=== PATIENT | male | born 1965 | race Caucasian/White ===

== ENCOUNTER 2017-10-22 10:03 | Inpatient (IN) | payer MEDICARE, MEDICAID ==
[2017-10-21 14:56] LABS: BASOPHILS # (AUTO) 0.1 X10'3 (0-0.2); BASOPHILS % (AUTO) 0.7 % (0-1); EOSINOPHILS # (AUTO) 0.8 X10'3 (0-0.9); EOSINOPHILS % (AUTO) 8.5 % (0-6); LYMPHOCYTES # (AUTO) 2.2 X10'3 (1.1-4.8); LYMPHOCYTES % (AUTO) 24.8 % (21-51); MEAN CORPUSCULAR HEMOGLOBIN 32.2 PG (27.0-31.0); MEAN CORPUSCULAR HGB CONC 34.2 % (33.0-36.5); MEAN PLATELET VOLUME 7.7 FL (7.4-10.4); MONOCYTES # (AUTO) 0.6 X10'3 (0-0.9); MONOCYTES % (AUTO) 6.2 % (2-12); NEUTROPHILS # (AUTO) 5.4 X10'3 (1.8-7.7); NEUTROPHILS % (AUTO) 59.8 % (42-75); PRE OP HEMATOCRIT 48.1 % (42.0-52.0); PRE OP HEMOGLOBIN 16.5 g/dL (14.0-17.9); PRE OP PLATELET COUNT 318 X10'3 (140-440); RED BLOOD COUNT 5.11 X10'6 (4.70-6.10); RED CELL DISTRIBUTION WIDTH 13.3 % (11.5-14.5)
[2017-10-21 15:18] LABS: ALBUMIN 3.8 G/DL (3.4-5.0); ALBUMIN/GLOBULIN RATIO 1.1 (1.1-1.5); ALKALINE PHOSPHATASE 120 IU/L (46-116); BLOOD UREA NITROGEN 14 MG/DL (7-18); CALCIUM 8.9 MG/DL (8.5-10.1); CHLORIDE 104 MMOL/L (99-107); CREATININE 1.08 MG/DL (0.60-1.10); PRE OP ALT 38 U/L (30-65); PRE OP ANION GAP 5 (8-16); PRE OP AST 20 U/L (10-37); PRE OP BILIRUB, TOTAL 0.2 MG/DL (0.0-1.0); PRE OP GLUCOSE 115 MG/DL (70-104); PRE OP SODIUM 140 MMOL/L (135-145); TOTAL CARBON DIOXIDE 31.2 MMOL/L (24-32); TOTAL PROTEIN 7.4 G/DL (6.4-8.2); eGFR 71 ML/MIN
[2017-10-22] VITALS (15 sets, daily range): BP systolic 103–138; BP diastolic 54–88
[~2017-10-22] VITALS: Ht 182.9 cm; Wt 87.2 kg
[~2017-10-22 10:03] MED LIST: ATOR10TA70 PO; DULO60CA64 PO; MSC100T PO; OXYC-511 PO; TRAZ-146 PO; cefazolin/dext.iso 2gm/50ml 50 ML IV ONE; famotidine 20mg tablet PO ONE; ringers solution, lacted 1,000 ML IV SCH
[2017-10-22] MEDS ORDERED: LIDOcaine 1% (10mg/ml) 2ml vial ONE (10:56)
[2017-10-22] MEDS ORDERED: vancomycin/NS 1 GM ADD-VANTAGE 250 ML IV ONE (11:51)
[2017-10-22] MEDS ORDERED: TRANEXAMIC ACID IV ONE ×5 (13:45→20:50)
[2017-10-22] MEDS ORDERED: NORMAL SALINE IV ONE ×5 (13:45→20:50)
[2017-10-22] MEDS ORDERED: vancomycin 1,000mg inj ONE ×5 (14:10→17:13)
[2017-10-22] MEDS ORDERED: ketorolac trometh. 30mg/ml inj. ONE (14:10)
[2017-10-22] MEDS ORDERED: ROPIVAcaine 0.5% (5mg/ml) 30ml vial ONE ×2 (14:10→15:09)
[2017-10-22] MEDS ORDERED: sevoflurane 250ml liquid IH ONE (15:05)
[2017-10-22] MEDS ORDERED: fentaNYL/PF 50MCG/1 ML 2ML syringe ONE (15:08)
[2017-10-22] MEDS ORDERED: midazolam 2 mg/2 ml injection ONE (15:09)
[2017-10-22] MEDS ORDERED: LIDOcaine 1%/PF (10mg/ml) 5ml vial ONE (15:12)
[2017-10-22] MEDS ORDERED: propofol inj 20 ML IV ONE ×2 (15:12→18:02)
[2017-10-22] MEDS ORDERED: ePHEDrine 50MG/ML INJ. ONE (15:48)
[2017-10-22] MEDS ORDERED: ringers solution, lacted 1,000 ML IV SCH (16:13)
[2017-10-22] MEDS ORDERED: ondansetron/PF 4mg/2ml inj IV PRN ×2 (16:15→17:50)
[2017-10-22] MEDS ORDERED: proCHLORperazine 10 MG/2 ml inj IV PRN (16:15)
[2017-10-22] MEDS ORDERED: meperidine/PF 25mg/ml syringe IV PRN ×3 (16:15)
[2017-10-22] MEDS ORDERED: morphine sulfate 8 MG/ML SYRINGE IV PRN ×2 (16:15)
[2017-10-22 17:44] LABS: APPEARANCE,SYNOVIAL FLUID TURBID; COLOR,SYNOVIAL FLUID YELLOW; SYN WBC 4950 /CU MM (0-200)
[2017-10-22 17:45] LABS: LYMPHOCYTES,SYNOVIAL FLUID 24 % (0-75); MONOCYTES,SYNOVIAL FLUID 4 % (0-0); NEUTROPHILS,SYNOVIAL FLUID 72 % (0-25); SYN RBC 4000 /CU MM (0)
[2017-10-22] MEDS ORDERED: bisacodyl 10mg suppository rectal RC PRN (17:50)
[2017-10-22] MEDS ORDERED: oxyCODONE/APAP 10/325mg tablet PO PRN (17:50)
[2017-10-22] MEDS ORDERED: diphenhydrAMINE 25mg capsule PO PRN ×2 (17:50)
[2017-10-22] MEDS ORDERED: magnesium hydroxide 30ml (MOM) UD suspension PO PRN (17:50)
[2017-10-22] MEDS ORDERED: acetaminophen 325mg tablet PO PRN (17:50)
[2017-10-22] MEDS ORDERED: oxyCODONE IR 5mg (immed. release) tablet PO PRN (17:50)
[2017-10-22] MEDS: sennosides 8.6mg tablet PO SCH (21:07)
[2017-10-22] MEDS: ketorolac tromethamine 15mg/ml inj. IV SCH (21:07)
[2017-10-22] MEDS: morphine ER 100mg tablet PO SCH (21:07)
[2017-10-22] MEDS: potassium cl 20mEq in 1/2 NS 1,000 ML IV SCH (21:08)
[2017-10-22] MEDS: celeCOXIB 100mg capsule PO SCH (21:08)
[2017-10-22] MEDS: acetaminophen 325mg tablet PO SCH (21:11)
[2017-10-22] MEDS: gabapentin 300mg capsule PO SCH (22:27)
[2017-10-22] MEDS: traZODone 50mg tablet PO SCH (22:28)
[2017-10-23] MEDS: CEFAZOLIN SODIUM/NORMAL SALINE 100 ML IV SCH ×2 (00:39→07:52)
[2017-10-23] MEDS: vancomycin/NS 1 GM ADD-VANTAGE 250 ML IV SCH ×3 (01:18→20:23)
[2017-10-23] MEDS: potassium cl 20mEq in 1/2 NS 1,000 ML IV SCH ×3 (01:49→17:49)
[2017-10-23] MEDS: acetaminophen 325mg tablet PO SCH ×4 (02:51→20:24)
[2017-10-23] MEDS: ketorolac tromethamine 15mg/ml inj. IV SCH ×4 (02:53→20:25)
[2017-10-23 03:28] VITALS: BP 113/63
[2017-10-23] MEDS: oxyCODONE IR 5mg (immed. release) tablet PO PRN ×3 (05:17→17:48)
[2017-10-23 06:08] LABS: BASOPHILS % (AUTO) 0 % (0-1); EOSINOPHILS # (AUTO) 0.1 X10'3 (0-0.9); EOSINOPHILS % (AUTO) 0.9 % (0-6); HEMATOCRIT 34.7 % (42.0-52.0); HEMOGLOBIN 11.8 g/dl (14.0-17.9); LYMPHOCYTES # (AUTO) 0.8 X10'3 (1.1-4.8); LYMPHOCYTES % (AUTO) 5.5 % (21-51); MEAN CORPUSCULAR HEMOGLOBIN 31.9 PG (27.0-31.0); MEAN CORPUSCULAR HGB CONC 33.9 % (33.0-36.5); MEAN CORPUSCULAR VOLUME 94.1 FL (78-98); MEAN PLATELET VOLUME 7.7 FL (7.4-10.4); MONOCYTES # (AUTO) 0.5 X10'3 (0-0.9); MONOCYTES % (AUTO) 2.9 % (2-12); NEUTROPHILS % (AUTO) 90.7 % (42-75); PLATELET COUNT 241 X10'3 (140-440); RED BLOOD COUNT 3.69 X10'6 (4.70-6.10); RED CELL DISTRIBUTION WIDTH 13.3 % (11.5-14.5); WHITE BLOOD COUNT 15.5 X10'3 (4.5-11.0)
[2017-10-23 06:31] LABS: ANION GAP 9 (8-16); CHLORIDE 104 MMOL/L (99-107); POTASSIUM 4.8 MMOL/L (3.5-5.1); SODIUM 137 MMOL/L (135-145); TOTAL CARBON DIOXIDE 23.8 MMOL/L (24-32)
[2017-10-23] MEDS: celeCOXIB 100mg capsule PO SCH ×2 (07:52→19:02)
[2017-10-23] MEDS: duloxetine 30mg CAPSULE.DR PO SCH (07:52)
[2017-10-23] MEDS: atorvastatin 10mg tablet PO SCH (07:52)
[2017-10-23] MEDS: morphine ER 100mg tablet PO SCH (07:53)
[2017-10-23] MEDS: gabapentin 300mg capsule PO SCH ×3 (07:53→20:24)
[2017-10-23] MEDS: aspirin 325mg tablet PO SCH (07:53)
[2017-10-23 10:00] VITALS: BP 111/61
[2017-10-23] MEDS ORDERED: morphine 5 MG/ML injection IV PRN (11:25)
[2017-10-23] MEDS: morphine sulfate 8 MG/ML SYRINGE IV PRN (11:56)
[2017-10-23 15:00] VITALS: BP 110/52
[2017-10-23] MEDS: lactobacillus rhamnosus 10,000 MMU CELLS/CAPSULE PO SCH (17:12)
[2017-10-23 18:00] VITALS: BP 111/44
[2017-10-23] MEDS: sennosides 8.6mg tablet PO SCH (20:24)
[2017-10-23] MEDS: traZODone 50mg tablet PO SCH (20:24)
[2017-10-23 22:00] VITALS: BP 106/55
[2017-10-24] MEDS: potassium cl 20mEq in 1/2 NS 1,000 ML IV SCH ×2 (00:08→09:49)
[2017-10-24] MEDS: oxyCODONE IR 5mg (immed. release) tablet PO PRN ×3 (02:52→11:46)
[2017-10-24] MEDS: ketorolac tromethamine 15mg/ml inj. IV SCH (02:53)
[2017-10-24] MEDS: acetaminophen 325mg tablet PO SCH ×2 (02:53→07:10)
[2017-10-24] MEDS: morphine sulfate 8 MG/ML SYRINGE IV PRN ×2 (04:58→09:49)
[2017-10-24 05:08] LABS: BASOPHILS # (AUTO) 0.1 X10'3 (0-0.2); BASOPHILS % (AUTO) 0.4 % (0-1); EOSINOPHILS # (AUTO) 0.4 X10'3 (0-0.9); EOSINOPHILS % (AUTO) 2.9 % (0-6); HEMATOCRIT 33.7 % (42.0-52.0); HEMOGLOBIN 11.3 g/dl (14.0-17.9); LYMPHOCYTES # (AUTO) 2.3 X10'3 (1.1-4.8); LYMPHOCYTES % (AUTO) 17.1 % (21-51); MEAN CORPUSCULAR HEMOGLOBIN 31.5 PG (27.0-31.0); MEAN CORPUSCULAR HGB CONC 33.4 % (33.0-36.5); MEAN CORPUSCULAR VOLUME 94.5 FL (78-98); MEAN PLATELET VOLUME 7.9 FL (7.4-10.4); MONOCYTES # (AUTO) 0.8 X10'3 (0-0.9); MONOCYTES % (AUTO) 5.8 % (2-12); NEUTROPHILS # (AUTO) 10.1 X10'3 (1.8-7.7); NEUTROPHILS % (AUTO) 73.8 % (42-75); PLATELET COUNT 215 X10'3 (140-440); RED BLOOD COUNT 3.57 X10'6 (4.70-6.10); WHITE BLOOD COUNT 13.6 X10'3 (4.5-11.0)
[2017-10-24 05:42] LABS: ALBUMIN 2.7 G/DL (3.4-5.0); ANION GAP 5 (8-16); BLOOD UREA NITROGEN 17 MG/DL (7-18); BUN/CREATININE RATIO 14.9 (5.4-32.0); CHLORIDE 109 MMOL/L (99-107); CREATININE 1.14 MG/DL (0.60-1.10); GLUCOSE 99 MG/DL (70-104); POTASSIUM 4.7 MMOL/L (3.5-5.1); SODIUM 141 MMOL/L (135-145); eGFR 67 ML/MIN
[2017-10-24 06:00] VITALS: BP 108/68
[2017-10-24] MEDS: vancomycin/NS 1 GM ADD-VANTAGE 250 ML IV SCH (07:09)
[2017-10-24] MEDS: celeCOXIB 100mg capsule PO SCH (07:09)
[2017-10-24] MEDS: atorvastatin 10mg tablet PO SCH (07:10)
[2017-10-24] MEDS: lactobacillus rhamnosus 10,000 MMU CELLS/CAPSULE PO SCH (07:10)
[2017-10-24] MEDS: duloxetine 30mg CAPSULE.DR PO SCH (07:10)
[2017-10-24] MEDS: gabapentin 300mg capsule PO SCH (07:11)
[2017-10-24] MEDS: aspirin 325mg tablet PO SCH (07:11)
[2017-10-24] MEDS ORDERED: morphine ER 100mg tablet PO SCH (08:00)
[2017-10-25] MEDS ORDERED: VANCOMYCIN LEVEL IV NR (19:30)
== END 2017-10-24 11:45 | disposition home or self-care (01) | DRG 496 ==
LOC: PAS IN 10:03 → EDSTATUS 13:45 → ORTHO 4S 19:15
PROVIDERS: ADMIT Orthopaedic Surgery; ATTEND Orthopaedic Surgery
PROC: 0RPK0JZ Removal of Synthetic Substitute from Left Shoulder Joint, Open Approach (ICD-10-PCS; 2017-10-22)
PROC: 0RHK08Z Insertion of Spacer into Left Shoulder Joint, Open Approach (ICD-10-PCS; 2017-10-22)
PROC: 3E0T3BZ Introduction of Anesthetic Agent into Peripheral Nerves and Plexi, Percutaneous Approach (ICD-10-PCS; principal; 2017-10-22 15:05)
PROC: 02HV33Z Insertion of Infusion Device into Superior Vena Cava, Percutaneous Approach (ICD-10-PCS; 2017-10-23)
PROC: B548ZZA Ultrasonography of Superior Vena Cava, Guidance (ICD-10-PCS; 2017-10-23)
DX: T84.59XA Infection and inflammatory reaction due to other internal joint prosthesis, initial encounter (principal); D62 Acute posthemorrhagic anemia; Z96.612 Presence of left artificial shoulder joint; E78.5 Hyperlipidemia, unspecified; F32.9 Major depressive disorder, single episode, unspecified; G89.29 Other chronic pain; F41.9 Anxiety disorder, unspecified; M75.01 Adhesive capsulitis of right shoulder; M75.111 Incomplete rotator cuff tear or rupture of right shoulder, not specified as traumatic; F17.200 Nicotine dependence, unspecified, uncomplicated; Y79.2 Prosthetic and other implants, materials and accessory orthopedic devices associated with adverse incidents; Y92.89 Other specified places as the place of occurrence of the external cause; Z79.899 Other long term (current) drug therapy
CPT/HCPCS: 36415; 36569; 76937; 80048; 80051; 80053; 85025; 87070; 87075; 87102; 88305; 88331; 89051; 97116; 97161; 97530; A4565; A6255; A7000; C1713; J0690; J1885; J2001; J2250; J2270; J2704; J2795; J3010; J3370; J3490; J7120

== ENCOUNTER 2018-02-27 13:30 | Inpatient (IN) | payer MEDICARE, MEDICAID ==
[~2018-02-27] VITALS: Ht 182.9 cm; Wt 81.5 kg
[~2018-02-27 13:30] MED LIST changes: -TRAZ-146 PO; -cefazolin/dext.iso 2gm/50ml 50 ML IV ONE; -famotidine 20mg tablet PO ONE; -ringers solution, lacted 1,000 ML IV SCH
[2018-02-27] MEDS ORDERED: ACYC-202 PO (14:39)
[2018-02-27] MEDS ORDERED: SILD20TA PO (14:39)
[2018-02-27 14:53] LABS: BASOPHILS # (AUTO) 0.1 X10'3 (0-0.2); EOSINOPHILS # (AUTO) 0.8 X10'3 (0-0.9); EOSINOPHILS % (AUTO) 8.9 % (0-6); LYMPHOCYTES # (AUTO) 3.1 X10'3 (1.1-4.8); LYMPHOCYTES % (AUTO) 36.2 % (21-51); MEAN CORPUSCULAR HEMOGLOBIN 31.3 PG (27.0-31.0); MEAN CORPUSCULAR HGB CONC 35.1 % (33.0-36.5); MEAN CORPUSCULAR VOLUME 89.2 FL (78-98); MEAN PLATELET VOLUME 7.1 FL (7.4-10.4); MONOCYTES # (AUTO) 0.6 X10'3 (0-0.9); MONOCYTES % (AUTO) 7.1 % (2-12); NEUTROPHILS % (AUTO) 46.8 % (42-75); PRE OP HEMATOCRIT 42.2 % (42.0-52.0); PRE OP HEMOGLOBIN 14.8 g/dL (14.0-17.9); PRE OP PLATELET COUNT 347 X10'3 (140-440); RED BLOOD COUNT 4.74 X10'6 (4.70-6.10); RED CELL DISTRIBUTION WIDTH 15.6 % (11.5-14.5)
[2018-02-27 14:59] LABS: ALBUMIN 3.7 G/DL (3.4-5.0); ALBUMIN/GLOBULIN RATIO 1.1 (1.1-1.5); ALKALINE PHOSPHATASE 108 IU/L (46-116); BLOOD UREA NITROGEN 19 MG/DL (7-18); BUN/CREATININE RATIO 16.1 (5.4-32.0); CALCIUM 8.6 MG/DL (8.5-10.1); CHLORIDE 106 MMOL/L (99-107); CREATININE 1.18 MG/DL (0.60-1.10); PRE OP ALT 28 U/L (30-65); PRE OP ANION GAP 9 (8-16); PRE OP AST 24 U/L (10-37); PRE OP BILIRUB, TOTAL 0.4 MG/DL (0.0-1.0); PRE OP GLUCOSE 88 MG/DL (70-104); PRE OP SODIUM 141 MMOL/L (135-145); TOTAL CARBON DIOXIDE 26.2 MMOL/L (24-32); TOTAL PROTEIN 7.1 G/DL (6.4-8.2); eGFR 64 ML/MIN
[2018-02-27 15:00] LABS: PRE OP POTASSIUM 4.4 MMOL/L (3.4-5.1)
[2018-02-28] VITALS (15 sets, daily range): BP systolic 98–154; BP diastolic 61–91
[2018-02-28] MEDS ORDERED: ringers solution, lacted 1,000 ML IV SCH ×2 (05:00→16:26)
[2018-02-28] MEDS ORDERED: vancomycin inj 1,500 MG in normal saline 300ml IV soln IV ONE (05:30)
[2018-02-28] MEDS ORDERED: famotidine 20mg tablet PO ONE (05:30)
[2018-02-28] MEDS ORDERED: ceFAZolin inj. 2,000 MG in normal saline 100ml IV soln 100 ML IV ONE (05:30)
[2018-02-28] MEDS ORDERED: scopolamine 1.5mg patch.TD72 TD ONE (05:30)
[2018-02-28] MEDS ORDERED: LIDOcaine 1% (10mg/ml) 2ml vial ONE (10:08)
[2018-02-28] MEDS ORDERED: oxyCODONE/APAP 10/325mg tablet PO ONE (13:30)
[2018-02-28] MEDS ORDERED: ROPIVAcaine 0.5% (5mg/ml) 30ml vial ONE ×3 (14:09→16:45)
[2018-02-28] MEDS ORDERED: ketorolac trometh. 30mg/ml inj. ONE ×3 (14:10→17:51)
[2018-02-28] MEDS ORDERED: vancomycin 1,000mg inj ONE (14:10)
[2018-02-28] MEDS ORDERED: midazolam 2 mg/2 ml injection ONE (15:36)
[2018-02-28] MEDS ORDERED: fentaNYL /PF 50mcg/ml 5ml ampule ONE (15:37)
[2018-02-28] MEDS ORDERED: tranexamic acid inj. 820 MG in normal saline 100ml IV soln 100 ML IV ONE ×5 (15:40→21:05)
[2018-02-28] MEDS ORDERED: dexamethasone sod phosphate 4mg/ml inj. ONE (16:02)
[2018-02-28] MEDS ORDERED: LIDOcaine 2% (20mg/ml) 5ml vial ONE (16:04)
[2018-02-28] MEDS ORDERED: ondansetron/PF 4mg/2ml inj ONE (16:04)
[2018-02-28] MEDS ORDERED: propofol inj 20 ML IV ONE (16:04)
[2018-02-28] MEDS ORDERED: ePHEDrine 50MG/ML INJ. ONE (16:05)
[2018-02-28] MEDS ORDERED: albumin (Human) 5% 250ml 250 ML IV ONE (16:23)
[2018-02-28] MEDS ORDERED: hydrALAZINE 20mg/ml inj. IV PRN (16:30)
[2018-02-28] MEDS ORDERED: enalaprilat dihydrate 2.5mg/2ml vial IV PRN (16:30)
[2018-02-28] MEDS ORDERED: ondansetron/PF 4mg/2ml inj IV PRN ×2 (16:30→18:05)
[2018-02-28] MEDS ORDERED: morphine 4 MG/ML inj SYRINge IV PRN ×2 (16:30)
[2018-02-28] MEDS ORDERED: fentaNYL/PF 50MCG/1 ML 2ML syringe IV PRN ×2 (16:30)
[2018-02-28] MEDS ORDERED: morphine 10mg/ml inj. ONE ×3 (17:43→17:58)
[2018-02-28] MEDS ORDERED: sildenafil citrate 20mg tablet PO SCH (18:05)
[2018-02-28] MEDS ORDERED: morphine 10mg/ml inj. IV PRN ×2 (18:05)
[2018-02-28] MEDS ORDERED: diphenhydrAMINE 25mg capsule PO PRN ×2 (18:05)
[2018-02-28] MEDS ORDERED: oxyCODONE IR 5mg (immed. release) tablet PO PRN (18:05)
[2018-02-28] MEDS ORDERED: acetaminophen 325mg tablet PO PRN (18:05)
[2018-02-28] MEDS ORDERED: bisacodyl 10mg suppository rectal RC PRN (18:05)
[2018-02-28] MEDS ORDERED: magnesium hydroxide 30ml (MOM) UD suspension PO PRN (18:05)
[2018-02-28] MEDS: morphine ER 100mg tablet PO SCH (19:32)
[2018-02-28] MEDS: ketorolac tromethamine 15mg/ml inj. IV SCH (19:32)
[2018-02-28] MEDS: acetaminophen 325mg tablet PO SCH (19:33)
[2018-02-28] MEDS ORDERED: vancomycin/NS 1 GM ADD-VANTAGE 250 ML IV SCH (20:00)
[2018-02-28] MEDS ORDERED: sennosides 8.6mg tablet PO SCH (21:00)
[2018-02-28] MEDS: oxyCODONE IR 5mg (immed. release) tablet PO PRN (21:03)
[2018-02-28] MEDS: gabapentin 300mg capsule PO SCH (21:03)
[2018-03-01] MEDS: ceFAZolin 1GM/D5W- ADD-VANTAGE 50 ML IV SCH ×2 (00:57→08:48)
[2018-03-01] MEDS: potassium cl 20mEq in 1/2 NS 1,000 ML IV SCH ×3 (00:58→10:05)
[2018-03-01] MEDS: oxyCODONE IR 5mg (immed. release) tablet PO PRN ×3 (01:14→12:19)
[2018-03-01] MEDS: ketorolac tromethamine 15mg/ml inj. IV SCH ×2 (01:14→08:48)
[2018-03-01] MEDS: acetaminophen 325mg tablet PO SCH ×2 (01:15→08:49)
[2018-03-01 02:00] VITALS: BP 100/58
[2018-03-01 07:25] LABS: BASOPHILS % (AUTO) 0.1 % (0-1); EOSINOPHILS % (AUTO) 0 % (0-6); HEMATOCRIT 36.2 % (42.0-52.0); HEMOGLOBIN 12.2 g/dl (14.0-17.9); LYMPHOCYTES # (AUTO) 0.8 X10'3 (1.1-4.8); LYMPHOCYTES % (AUTO) 5.5 % (21-51); MEAN CORPUSCULAR HEMOGLOBIN 30.9 PG (27.0-31.0); MEAN CORPUSCULAR HGB CONC 33.6 % (33.0-36.5); MEAN PLATELET VOLUME 8.2 FL (7.4-10.4); MONOCYTES # (AUTO) 0.2 X10'3 (0-0.9); MONOCYTES % (AUTO) 1.6 % (2-12); NEUTROPHILS # (AUTO) 13.4 X10'3 (1.8-7.7); NEUTROPHILS % (AUTO) 92.8 % (42-75); PLATELET COUNT 304 X10'3 (140-440); RED BLOOD COUNT 3.94 X10'6 (4.70-6.10); RED CELL DISTRIBUTION WIDTH 14.9 % (11.5-14.5); WHITE BLOOD COUNT 14.5 X10'3 (4.5-11.0)
[2018-03-01] MEDS ORDERED: non-formulary drug (Duloxetine HCl 1 CAP) PO SCH (08:00)
[2018-03-01] MEDS ORDERED: duloxetine 30mg CAPSULE.DR PO SCH (08:00)
[2018-03-01] MEDS ORDERED: atorvastatin 10mg tablet PO SCH (08:00)
[2018-03-01 08:14] LABS: ANION GAP 9 (8-16); CHLORIDE 105 MMOL/L (99-107); POTASSIUM 4.7 MMOL/L (3.5-5.1); SODIUM 139 MMOL/L (135-145); TOTAL CARBON DIOXIDE 25.4 MMOL/L (24-32)
[2018-03-01] MEDS ORDERED: aspirin 325mg tablet PO SCH (08:30)
[2018-03-01] MEDS: morphine ER 100mg tablet PO SCH (08:48)
[2018-03-01] MEDS: gabapentin 300mg capsule PO SCH ×2 (08:49→12:19)
[2018-03-01 10:22] VITALS: BP 125/68
[2018-03-01] MEDS ORDERED: celeCOXIB 100mg capsule PO SCH (20:00)
== END 2018-03-01 13:20 | disposition home or self-care (01) | DRG 483 ==
LOC: EDSTATUS 13:30 → PAS IN 02-28 09:46 → EDSTATUS 02-28 14:00 → ORTHO 4S 02-28 19:10
PROVIDERS: ADMIT Orthopaedic Surgery; ATTEND Orthopaedic Surgery
PROC: 0LS40ZZ Reposition Left Upper Arm Tendon, Open Approach (ICD-10-PCS; 2018-02-28)
PROC: 0RPK08Z Removal of Spacer from Left Shoulder Joint, Open Approach (ICD-10-PCS; 2018-02-28)
PROC: 3E0T3BZ Introduction of Anesthetic Agent into Peripheral Nerves and Plexi, Percutaneous Approach (ICD-10-PCS; 2018-02-28)
PROC: 0RRK00Z Replacement of Left Shoulder Joint with Reverse Ball and Socket Synthetic Substitute, Open Approach (ICD-10-PCS; principal; 2018-02-28 15:32)
DX: T84.9XXA Unspecified complication of internal orthopedic prosthetic device, implant and graft, initial encounter (principal); I27.20 Pulmonary hypertension, unspecified; D62 Acute posthemorrhagic anemia; E78.5 Hyperlipidemia, unspecified; M65.812 Other synovitis and tenosynovitis, left shoulder; Z96.612 Presence of left artificial shoulder joint; M75.02 Adhesive capsulitis of left shoulder; M75.112 Incomplete rotator cuff tear or rupture of left shoulder, not specified as traumatic; M75.22 Bicipital tendinitis, left shoulder; F32.9 Major depressive disorder, single episode, unspecified; F41.9 Anxiety disorder, unspecified; Y79.2 Prosthetic and other implants, materials and accessory orthopedic devices associated with adverse incidents; Z79.899 Other long term (current) drug therapy; Z72.89 Other problems related to lifestyle; Y92.89 Other specified places as the place of occurrence of the external cause
CPT/HCPCS: 36415; 80051; 80053; 85025; 86885; 86900; 86901; 87070; 87075; 88305; 88331; 93005; 97110; 97116; 97162; 97530; A4565; A7000; J0690; J1100; J1885; J2001; J2250; J2270; J2405; J2704; J2795; J3010; J3370; J3490; J7030; J7120; P9045

== ENCOUNTER 2020-10-04 05:35 | Day surgery (SDC) | payer MEDICARE, MEDICAID ==
[2020-09-27 14:37] LABS: BASOPHILS # (AUTO) 0.1 X10'3 (0-0.2); BASOPHILS % (AUTO) 1.2 % (0-1); EOSINOPHILS # (AUTO) 0.3 X10'3 (0-0.9); EOSINOPHILS % (AUTO) 3.5 % (0-6); LYMPHOCYTES # (AUTO) 2.7 X10'3 (1.1-4.8); MEAN CORPUSCULAR HGB CONC 34.9 g/dL (33.0-36.5); MEAN CORPUSCULAR VOLUME 94.5 FL (78-98); MEAN PLATELET VOLUME 7.4 FL (7.4-10.4); MONOCYTES # (AUTO) 0.7 X10'3 (0-0.9); MONOCYTES % (AUTO) 8.2 % (2-12); NEUTROPHILS # (AUTO) 4.4 X10'3 (1.8-7.7); NEUTROPHILS % (AUTO) 54.1 % (42-75); PRE OP HEMOGLOBIN 15.7 g/dL (14.0-17.9); PRE OP PLATELET COUNT 277 X10'3 (140-440); RED BLOOD COUNT 4.76 X10'6 (4.70-6.10); RED CELL DISTRIBUTION WIDTH 13.3 % (11.5-14.5)
[2020-09-27 14:51] LABS: ALBUMIN 3.7 G/DL (3.4-5.0); ALBUMIN/GLOBULIN RATIO 1.2 (1.1-1.5); ALKALINE PHOSPHATASE 112 IU/L (46-116); BLOOD UREA NITROGEN 19 MG/DL (7-18); BUN/CREATININE RATIO 13.5 (5.4-32.0); CALCIUM 8.7 MG/DL (8.5-10.1); CHLORIDE 107 MMOL/L (99-107); CREATININE 1.41 MG/DL (0.60-1.10); PRE OP ALT 36 U/L (30-65); PRE OP ANION GAP 9 (8-16); PRE OP AST 18 U/L (10-37); PRE OP BILIRUB, TOTAL 0.4 MG/DL (0.0-1.0); PRE OP GLUCOSE 121 MG/DL (70-104); PRE OP SODIUM 142 MMOL/L (135-145); TOTAL CARBON DIOXIDE 26.1 MMOL/L (24-32); TOTAL PROTEIN 6.8 G/DL (6.4-8.2); eGFR 52 ML/MIN
[~2020-10-04] VITALS: Ht 182.9 cm; Wt 88.3 kg
[2020-10-04] VITALS (26 sets, daily range): BP systolic 117–158; BP diastolic 56–99
[~2020-10-04 05:35] MED LIST changes: -DULO60CA64 PO; -MSC100T PO; -OXYC-511 PO; +OXYC1TAB17 PO; +famotidine 20mg tablet PO ONE; +ringers solution, lacted 1,000 ML IV SCH; +scopolamine 1.5mg patch.TD72 TD ONE; +vancomycin 1,500 MG in NS 300ml IV soln IV ONE
[2020-10-04] MEDS: ceFAZolin 2gm in dextrose, iso 50 ML IV ONE ×2 (06:15→06:25)
[2020-10-04] MEDS ORDERED: BUPIVAcaine/PF 2.5mg/ml (0.25%) 10ml vial ONE (06:17)
[2020-10-04] MEDS ORDERED: propofol inj 20 ML IV ONE (07:04)
[2020-10-04] MEDS ORDERED: MIDAZolam 5mg/5ml vial ONE (07:04)
[2020-10-04] MEDS ORDERED: ROPIVAcaine 0.5% (5mg/ml) 30ml vial ONE (07:04)
[2020-10-04] MEDS ORDERED: sevoflurane 250ml liquid IH ONE (07:04)
[2020-10-04] MEDS ORDERED: fentaNYL/PF 50MCG/1 ML 2ML syringe ONE (07:04)
[2020-10-04] MEDS ORDERED: ePHEDrine 50MG/ML INJ. ONE (08:07)
[2020-10-04] MEDS ORDERED: dexamethasone sod phosphate 4mg/ml inj. ONE (08:13)
[2020-10-04] MEDS ORDERED: proCHLORperazine 10 MG/2 ml inj IV PRN (08:40)
[2020-10-04] MEDS ORDERED: ROPIVAcaine 0.2% (10 MG/5 ML) BOLUS INJECTION INTERSCALE PRN (08:40)
[2020-10-04] MEDS ORDERED: morphine 4 MG/ML inj SYRINge IV PRN (08:40)
[2020-10-04] MEDS ORDERED: ondansetron/PF 4mg/2ml inj IV PRN (08:40)
[2020-10-04] MEDS ORDERED: ringers solution, lacted 1,000 ML IV SCH (08:40)
[2020-10-04] MEDS ORDERED: ROPIVAcaine 0.2%/PF PUMP/bolus 550 ML INTERSCALE SCH (08:40)
[2020-10-04] MEDS ORDERED: meperidine/PF 25mg/ml syringe IV PRN ×2 (08:40)
[2020-10-04] MEDS ORDERED: morphine 2 MG/ML inj. syringe IV PRN (08:40)
[2020-10-04] MEDS ORDERED: ondansetron/PF 4mg/2ml inj ONE (08:57)
--- NOTE | 2020-10-04 09:08 | NUR ---
Received from OR via [facility], accompanied by Anesthesiologist DR VALENTINO and report given by Anesthesiologist. PT VERY DROWSY, NO S/S OF DISTRESS/DISCOMFORT. RIGHT SHOULDER W/DRSG, SHOULDER WRAP, ICE PACK, BRACE/SLING. Addendum: 10/04/20 at 0936 by Rachel Majano RN Amended: Links added.
[2020-10-04] MEDS ORDERED: HYDROcodone/acetaminophen 10/325mg tab PO PRN (09:10)
[2020-10-04] MEDS: meperidine/PF 25mg/ml syringe IV PRN ×2 (10:28→10:54)
--- NOTE | 2020-10-04 11:48 | NUR ---
PT REMAINS DROWSY, BUT RESPONDS TO NAME A/O X 4, C/O MODERATE PAIN, INCREASED ON-QUE T0 6ML/HR, W/BOLUS GIVEN, PT SENT TO PAS TO WAKE UP MORE, RECEIVING RN IN ROOM TO RECEIVE PT Addendum: 10/04/20 at 1157 by Rachel Majano RN Amended: Links added.
--- NOTE | 2020-10-04 11:48 | NUR ---
TO PAS. PT A BIT SLEEPY BUT ORIENTED. PAIN MINIMAL, RUE WARM GOOD RAD PULSES. SLING ON, MOVES FINGERS. VS WNL. HOB ELEVATED.
--- NOTE | 2020-10-04 12:15 | NUR ---
AWAKE VS WNL, DISCH INSTR GIVEN TO PT AND UNDERSTOOD, SCOP PATCH REMOVED EARLIER, WHICH THEN PT WOKE UP FASTER. AWAITING FRIEND TO STUDENT ACCOUNTS MANAGER.
--- NOTE | 2020-10-04 13:45 | NUR ---
AWAKE VS WNL, DSG DI, ICE TO SHOULDER, SLING INTACT FINGERS WARM PINK GOOD CAP REFILL. PAIN MINIMAL. ON-Q PUMP ON, PT INSTRUCTED IN USE, IT WAS BOLUSED AND NOW AT 8. DISCH INSTR GIVEN TO PT AND SO, PT HUNGRY TOLERATED LIQUIDS. HOME.
--- NOTE | 2020-10-04 13:45 | NUR ---
PT HAS PAIN MED AT HOME BUT ON Q SEEMS TO BE WORKING.
== END 2020-10-04 13:45 | disposition home or self-care (01) ==
LOC: PAS 05:35 → EDSTATUS 07:30 → UNDOADMIN 09:09 → PACU 09:09 → PAS IN 09:09 → UNDODISIN 13:45 → PAS 13:45
PROVIDERS: ATTEND Orthopaedic Surgery
DX: S43.431A Superior glenoid labrum lesion of right shoulder, initial encounter (principal); M19.011 Primary osteoarthritis, right shoulder; F32.9 Major depressive disorder, single episode, unspecified; F41.9 Anxiety disorder, unspecified; G89.18 Other acute postprocedural pain; Z72.89 Other problems related to lifestyle; Z96.612 Presence of left artificial shoulder joint; Z98.890 Other specified postprocedural states; Z87.891 Personal history of nicotine dependence; Z79.899 Other long term (current) drug therapy; Z20.828 Contact with and (suspected) exposure to other viral communicable diseases; X58.XXXA Exposure to other specified factors, initial encounter; Y93.89 Activity, other specified; Y92.89 Other specified places as the place of occurrence of the external cause; Y99.8 Other external cause status
CPT/HCPCS: 23120; 29823; 36415; 64416; 76937; 80053; 82948; 85025; 87081; 87635; 93005; J1100; J2175; J2250; J2405; J2704; J2795; J3010; J3370; J3490; J7040; A4565; A4618; A6449; A7000; J7120